=== PATIENT | female | born 1975 | race Caucasian/White ===

== ENCOUNTER 2016-11-05 05:05 | Inpatient (IN) | payer BC, OTHER ==
[2016-11-05 05:57] VITALS: BMI 33.6
[2016-11-05] MEDS ORDERED: TUBERCULIN PPD 5 TU/0.1ML SYRINGE (IN PATIENT USE ONLY) ID ONE (06:04)
[2016-11-05] MEDS ORDERED: AMPICILLIN - 2 GM in SODIUM CHLORIDE 100 ML IVPB ONE (06:04)
[2016-11-05] MEDS ORDERED: AMPICILLIN - 100 ML IVPB ONE (06:32)
[2016-11-05 06:40] LABS: BASOPHIL 0.3 % (0-2.0); EOSINOPHIL 0.8 % (0-4.5); MCH 30.2 pg (25.7-33.7); MCHC 33.5 g/dl (32.0-36.0); MEAN CELL VOLUME 90.1 fl (80-96); MEAN PLT VOLUME 8.7 fl (7.5-11.1); NEUTROPHILS 57.9 % (42.8-82.8); PLATELET COUNT 212 K/MM3 (134-434); RDW 13.7 % (11.6-15.6); WHITE BLOOD COUNT 7.2 K/mm3 (4.0-10.0)
[2016-11-05 06:43] LABS: INR 0.95 (0.82-1.09); PROTHROMBIN TIME (PATIENT) 10.4 SEC (9.98-11.88)
[2016-11-05 06:45] LABS: ACTIVATED PTT 25.7 SECONDS (26.9-34.4)
[2016-11-05] MEDS ORDERED: PROMETHAZINE HCL 25 MG/1 ML VIAL IVPB ONE (06:45)
[2016-11-05] MEDS ORDERED: DEXTROSE 5%-LACTATED RINGERS 1,000 ML IV SCH (06:45)
[2016-11-05] MEDS ORDERED: BUTORPHANOL TARTRATE 1 MG/ML VIAL IVPB ONE (06:45)
[2016-11-05 07:01] LABS: CALCIUM 8.8 mg/dL (8.5-10.1); CREATININE 0.6 mg/dL (0.55-1.02)
[2016-11-05 07:32] LABS: HIV 1 & 2 AB NEGATIVE; HIV 1 AGp24 NEGATIVE
[2016-11-05] MEDS ORDERED: ELECTROLYTE-148 SOLN 1,000 ML IV SCH (08:30)
[2016-11-05] MEDS: OXYTOCIN 20 UNITS in 0.9% NS 1,000 ML IV SCH ×2 (12:27→18:01)
[2016-11-05] MEDS ORDERED: BENZOCAINE 20% 57 GM BOTTLE TP PRN (12:43)
[2016-11-05] MEDS ORDERED: BISACODYL 10 MG SUPP.RECT RC PRN (12:43)
[2016-11-05] MEDS ORDERED: WITCH HAZEL 50% (TUCKS) 40 PAD/JAR PAD TP PRN (12:43)
[2016-11-05] MEDS ORDERED: BENZOCAINE 28 GM HEMORRHOIDAL OINTMENT TP PRN (12:43)
[2016-11-05] MEDS ORDERED: METHYLERGONOVINE MALEATE 0.2 MG/1 ML AMP IM PRN (12:43)
[2016-11-05 13:19] LABS: ARTERIAL BLD GAS O2 SATURATION 28.8 % (90-98.9); ARTERIAL BLOOD GAS HCO3 26.1 meq/L (22-26); ARTERIAL BLOOD GAS PO2 20.2 mmHg (80-100); ARTERIAL BLOOD GAS pH 7.27 (7.35-7.45)
[2016-11-05 13:20] LABS: ART PUNCT SITE OTHER; LPM/O2% 21%; PT. ON O2? n; TYPE OF O2 R/A
[2016-11-05 13:23] LABS: ARTERIAL BLD GAS O2 SATURATION 54.7 % (90-98.9); ARTERIAL BLOOD GAS BASE EXCESS -2.2 meq/l (-2-2); ARTERIAL BLOOD GAS HCO3 23.9 meq/L (22-26); ARTERIAL BLOOD GAS PO2 28.2 mmHg (80-100); ARTERIAL BLOOD GAS pH 7.33 (7.35-7.45)
[2016-11-05 13:24] LABS: ART PUNCT SITE OTHER; LPM/O2% 21%; PT. ON O2? NO; TYPE OF O2 R/A
[2016-11-05] MEDS: IBUPROFEN 600 MG TABLET (FP) PO PRN ×2 (14:59→19:52)
[2016-11-05] MEDS: ACETAMINOPHEN 325 MG TABLET (FP) PO PRN ×2 (15:00→19:49)
--- NOTE | 2016-11-05 17:21 | HP ---
Past Medical History - Primary Care Physician PCP:: Parker Wood - Admission Chief Complaint: 40.1 weeks, rom, labor History of Present Illness: 41 yo f c/o rom, with contraction, no fever, no bleeding. cv 2 cm, 80 vx -1 mr [facility] , [facility]hr cat 1 History Source: Patient Limitations to Obtaining History: No Limitations - Past Medical History ...: 4 ...Para: 1 ...Term: 1 ...: 0 ...Spon : 2 ...Induced : 0 ...Multiple Gestation: 0 ...LMP: 01/29/16 ... Weeks Gestation by Dates: 40.1 ...EDC by Dates: 11/04/16 ...EDC by Sono: 11/07/16 Endocrine: Yes: Hypothyroidism - Past Surgical History Past Surgical History: Yes: None Hx Myomectomy: No Hx Transabdominal Cerclage: No - Smoking History Smoking history: Never smoked Have you smoked in the past 12 months: No - Alcohol/Substance Use Hx Alcohol Use: No - Social History History of Recent Travel: No Home Medications - Allergies Allergies/Adverse Reactions: Allergies Allergy/AdvReac Type Severity Reaction Status Date / Time No Known Allergies Allergy Verified 11/05/16 11:46 - Home Medications Home Medications: Ambulatory Orders Levothyroxine [Synthroid -] 50 mcg PO DAILY 02/24/15 Vitamins (Sjr) - 1 tab PO DAILY 02/24/15 Review of Systems - Review of Systems Constitutional: reports: No Symptoms Eyes: reports: No Symptoms HENT: reports: No Symptoms Neck: reports: No Symptoms Cardiovascular: reports: No Symptoms Respiratory: reports: No Symptoms Gastrointestinal: reports: No Symptoms Genitourinary: reports: No Symptoms Breasts: reports: No Symptoms Reported, Lumps Musculoskeletal: reports: No Symptoms Integumentary: reports: No Symptoms Neurological: reports: No Symptoms Endocrine: reports: No Symptoms Psychiatric: reports: No Symptoms Physical Exam - Maternity Vital Signs: Vital Signs Temperature 98.4 F 11/05/16 17:08 Pulse Rate 73 11/05/16 17:08 Respiratory Rate 20 11/05/16 17:08 Blood Pressure 98/61 11/05/16 17:08 O2 Sat by Pulse Oximetry (%) Constitutional: Yes: Well Nourished, No Distress, Calm Eyes: Yes: WNL, Conjunctiva Clear, EOM Intact HENT: Yes: WNL, Atraumatic, Normocephalic Neck: Yes: WNL, Supple, Trachea Midline Cardiovascular: Yes: WNL, Regular Rate and Rhythm Breast(s): Yes: WNL - Abdominal Exam/OB Fundal Height: 40 Number of Fetuses: Single Presentation: Vertex Regularity: Irregular Intensity: Mod/Strong Monitor Mode: External Heart Rate Location: [facility] Category: I Accelerations: Uniform Decelerations: None - Vaginal Exam/OB Vaginal Bleediing: No Amniotic Membrane Status: Ruptured Nitrazine Test: Positive Amniotic Fluid: Yes: Meconium Stained Presentation: Vertex/Position Station: -2 - Physical Exam Musculoskeletal: Yes: WNL Edema: LLE: Trace, RLE: Trace Deep Tendon Reflex Grade: Normal +2 Psychiatric: Yes: WNL - Labs Lab Results: CBC, BMP 11/05/16 06:25 11/05/16 06:25 Hemorrhage Risk Assessment - Risk Factors Medium Risk Factors: Yes: None High Risk Factors: Yes: None Risk Score: 1 Risk Level: Medium Risk Problem List - Problems (1) 40 weeks gestation of Code(s): Z3A.40 - 40 WEEKS GESTATION OF (2) Rupture of membranes Code(s): AXU0242 - (3) First stage of labor established Code(s): ZWE0145 - (4) Advanced maternal age (AMA) in Code(s): UTZ2304 - (5) Adult hypothyroidism Code(s): E03.9 - HYPOTHYROIDISM, UNSPECIFIED Assessment/Plan plan admit, heart monitoring, pain management
[2016-11-06] MEDS: LEVOTHYROXINE NA 50 MCG TABLET (FP) PO SCH (06:19)
--- NOTE | 2016-11-06 07:08 | PN ---
Progress Note (short form) - Note Progress Note: ppd 1 doing well, no excess vaginal bleeding CBC, BMP 11/05/16 06:25 11/05/16 06:25 Last Vital Signs Temp Pulse Resp BP Pulse Ox 97.8 F 81 18 106/72 11/06/16 05:33 11/06/16 05:33 11/06/16 05:33 11/06/16 05:33 abdomen soft, uterus firm, non tender, , lochia mild ,, no odor ext .no calf tenderness plan ambulate, cbc Problem List - Problems (1) 40 weeks gestation of Code(s): Z3A.40 - 40 WEEKS GESTATION OF (2) Rupture of membranes Code(s): NER5135 - (3) First stage of labor established Code(s): MMY2781 - (4) Advanced maternal age (AMA) in Code(s): WGM2209 - (5) Adult hypothyroidism Code(s): E03.9 - HYPOTHYROIDISM, UNSPECIFIED
[2016-11-06 08:18] LABS: BASOPHIL 0.4 % (0-2.0); EOSINOPHIL 0.9 % (0-4.5); MCH 30.9 pg (25.7-33.7); MCHC 34.1 g/dl (32.0-36.0); MEAN CELL VOLUME 90.6 fl (80-96); MEAN PLT VOLUME 8.8 fl (7.5-11.1); NEUTROPHILS 64.5 % (42.8-82.8); PLATELET COUNT 184 K/MM3 (134-434); RDW 13.9 % (11.6-15.6); WHITE BLOOD COUNT 9.1 K/mm3 (4.0-10.0)
[2016-11-06] MEDS: PRENATAL VITAMINS W/ FOLIC ACID TABLET (FP) PO SCH (09:48)
[2016-11-06] MEDS: ACETAMINOPHEN 325 MG TABLET (FP) PO PRN ×3 (09:48→22:01)
[2016-11-06] MEDS: IBUPROFEN 600 MG TABLET (FP) PO PRN ×3 (09:50→22:00)
--- NOTE | 2016-11-06 17:44 | PN ---
Delivery - Delivery Vaginal Delivery: No Problems, Spontaneous Type of Anesthesia: None Episiotomy/Laceration: None EBL (cc): 300 Delivery, Single - Stages of Labor Date 1st Stage Initiatied: 11/05/16 Time 1st Stage Initiated: 05:00 Date 2nd Stage Initiated: 11/05/16 Time 2nd Stage Initiated: 12:20 Date of Delivery: 11/05/16 Time of Delivery: 12:32 Time Placenta Delivered: 12:37 Placenta: Yes: Spontaneous, Normal Configuration - Condition of Apparel Pattern Maker/Research Scholar Present: Yes Name: Groening,Natalia Infant Gender: Male Position: OA Total Hours ROM (Hrs/Mins): 8/37 - 1 Minute Total Score: 9 5 Minutes Total Score: 9 - [place] Feeding Plan Initial Plan: Elected not to breastfeed exclusively throughout hospitalization Benefits of Exclusively reinforced: Yes - Additional Information: Light meconium. Neonatology at delivery. Uncomplicated , mother and baby well
[2016-11-06] MEDS ORDERED: SENNOSIDES/DOCUSATE COMBO (SENNA PLUS) TABLET (UD) PO PRN (22:00)
[2016-11-07] MEDS: LEVOTHYROXINE NA 50 MCG TABLET (FP) PO SCH (06:30)
[2016-11-07] MEDS: ACETAMINOPHEN 325 MG TABLET (FP) PO PRN (09:28)
[2016-11-07] MEDS: PRENATAL VITAMINS W/ FOLIC ACID TABLET (FP) PO SCH (09:28)
[2016-11-07 12:02] VITALS: BP 107/68; PULSE 88; TEMP 98
--- NOTE | 2016-11-12 20:30 | DS ---
Physical Exam-SALON COORDINATOR Vital Signs: Vital Signs Temperature 98.0 F 11/07/16 09:00 Pulse Rate 88 11/07/16 09:00 Respiratory Rate 20 11/07/16 09:00 Blood Pressure 107/68 11/07/16 09:00 O2 Sat by Pulse Oximetry (%) Constitutional: Yes: Well Nourished, No Distress, Calm Eyes: Yes: WNL, Conjunctiva Clear, EOM Intact HENT: Yes: WNL, Atraumatic, Normocephalic Neck: Yes: WNL, Supple, Trachea Midline Cardiovascular: Yes: WNL, Regular Rate and Rhythm Respiratory: Yes: WNL, Regular, CTA Bilaterally Gastrointestinal: Yes: WNL ...Rectal Exam: Yes: WNL Renal/: Yes: WNL ....Post : Yes: Uterus firm, Uterus non-tender, Slight lochia rubra Breast(s): Yes: WNL Musculoskeletal: Yes: WNL Extremities: Yes: WNL Integumentary: Yes: WNL Neurological: Yes: WNL, Alert, Oriented ...Motor Strength: WNL Psychiatric: Yes: WNL, Alert, Oriented Labs: CBC, BMP 11/06/16 06:25 11/05/16 06:25 Delivery - Delivery Vaginal Delivery: No Problems, Spontaneous Type of Anesthesia: None Episiotomy/Laceration: None EBL (cc): 300 Delivery, Single - Stages of Labor Date 1st Stage Initiatied: 11/05/16 Time 1st Stage Initiated: 05:00 Date 2nd Stage Initiated: 11/05/16 Time 2nd Stage Initiated: 12:20 Date of Delivery: 11/05/16 Time of Delivery: 12:32 Time Placenta Delivered: 12:37 Placenta: Yes: Spontaneous, Normal Configuration - Condition of Priest/Roller Inspector Present: Yes Name: Natalia Vidal Gender: Male Position: OA Total Hours ROM (Hrs/Mins): 8/37 - 1 Minute Total Score: 9 5 Minutes Total Score: 9 - Feeding Plan Initial Plan: Elected not to breastfeed exclusively throughout hospitalization Benefits of Exclusively reinforced: Yes Discharge Summary Reason For Visit: LABOR Procedures: Principal: - Instructions Diet, Activity, Other Instructions: PT INSTRUCTED TO CALL FOR 4-6 WEEK FOLLOW UP APPOINTMENT. Disposition: HOME - Home Medications Comprehensive Discharge Medication List: Ambulatory Orders Levothyroxine [Synthroid -] 50 mcg PO DAILY 02/24/15 Vitamins (Sjr) - 1 tab PO DAILY 02/24/15
== END 2016-11-07 11:30 | disposition home or self-care (01) | DRG 775 ==
LOC: JLDR 05:05 → J3W 14:47
PROVIDERS: ADMIT Obstetrics & Gynecology; ATTEND Obstetrics & Gynecology
PROC: 10E0XZZ Delivery of Products of Conception, External Approach (ICD-10-PCS; principal; 2016-11-05)
DX: O48.0 Post-term pregnancy (principal); O99.284 Endocrine, nutritional and metabolic diseases complicating childbirth; O09.523 Supervision of elderly multigravida, third trimester; E03.8 Other specified hypothyroidism; Z3A.40 40 weeks gestation of pregnancy; Z37.0 Single live birth
CPT/HCPCS: 36415; 36600; 59409; 80048; 82803; 85025; 85610; 85730; 86593; 86850; 86900; 86901; 87389

== ENCOUNTER 2017-06-02 13:40 | Day surgery (SDC) | payer BC, OTHER ==
[2017-05-27 13:44] VITALS: BMI 28.8
--- NOTE | 2017-06-02 14:43 | HP ---
Admitting History and Physical - Admission History of Present Illness: 41 yo P2 desiring permanent sterilization, rejects all forms of non-permanent birthcontrol - Past Medical History Cardiovascular: No: HTN Pulmonary: No: Asthma ...LMP: 05/10/17 ...: No ...: 3 ...Para: 2 Infectious Disease: No: HIV Endocrine: Yes: Hypothyroidism - Past Surgical History Past Surgical History: Yes: None Additional Past Surgical History: D&C - Smoking History Smoking history: Never smoked Have you smoked in the past 12 months: No - Alcohol/Substance Use Hx Alcohol Use: Yes (RARE) - Social History History of Recent Travel: No Home Medications - Allergies Allergies/Adverse Reactions: Allergies Allergy/AdvReac Type Severity Reaction Status Date / Time No Known Allergies Allergy Verified 06/02/17 14:10 - Home Medications Home Medications: Ambulatory Orders Levothyroxine [Synthroid -] 50 mcg PO DAILY 02/24/15 Family Disease History - Family Disease History Family Disease History: CA: Brother (breast ca age 36, recent diagnosis) Review of Systems - Review of Systems Constitutional: reports: No Symptoms Cardiovascular: reports: No Symptoms Respiratory: reports: No Symptoms Musculoskeletal: reports: No Symptoms Integumentary: reports: No Symptoms Psychiatric: reports: No Symptoms Physical Examination Vital Signs: Vital Signs Temperature 98.1 F 06/02/17 14:11 Pulse Rate 67 06/02/17 14:11 Respiratory Rate 18 06/02/17 14:11 Blood Pressure 111/68 06/02/17 14:11 O2 Sat by Pulse Oximetry (%) 97 06/02/17 14:13 Constitutional: Yes: Well Nourished, No Distress, Calm Cardiovascular: Yes: Regular Rate and Rhythm Respiratory: Yes: Regular, CTA Bilaterally Gastrointestinal: Yes: Normal Bowel Sounds, Soft Extremities: Yes: WNL Neurological: Yes: Alert, Oriented ...Motor Strength: WNL Psychiatric: Yes: Alert, Oriented Assessment/Plan 41 yo P2 desiring permanent sterilization 1. Reviewed consent forms. Discussed risks including infection, bleeding, damage to surrounding organs such as bowel and bladder. Reviewed risk of laparotomy. Reviewed risk of tubal ligation failure. Reviewed tubal ligation vs salpingectomy to reduce possible risk of malignancy, declines salpingectomy. 2. Ancef midwife practitioner 3. SCDs for DVT prophylaxis 4. Will proceed to OR
[2017-06-02] MEDS ORDERED: SUCCINYLCHOLINE CHLORIDE 200 MG/10 ML VIAL ONE (16:04)
[2017-06-02] MEDS ORDERED: PROPOFOL 20 ML ONE (16:04)
[2017-06-02] MEDS ORDERED: DEXAMETHASONE SOD PHOSPHATE 4 MG/1 ML VIAL ONE (16:04)
[2017-06-02] MEDS ORDERED: MIDAZOLAM HCL 2 MG/2 ML SINGLE DOSE VIAL ONE (16:05)
[2017-06-02] MEDS ORDERED: ceFAZolin SODIUM 1 GM VIAL ONE (16:32)
--- NOTE | 2017-06-02 17:10 | OP ---
Operative Note - Note: Operative Date: 06/02/17 Pre-Operative Diagnosis: multiparous desiring permanent sterilization Operation: laparoscopic bilateral tubal ligation, IUD removal Findings: normal appearing uterus, normal fallopian tubes and ovaries bilaterally; Paragard IUD insitu Surgeon: Simona Madera Exceptional Needs Teacher: Marin Perez Anesthesiologist/SENIOR MILITARY ANALYST: Abbey Gallardo (MD [place]) Anesthesia: General Specimens Removed: IUD Estimated Blood Loss (mls): 5 Drains, Volume Out (mls): 300 (UOP) Fluid Volume Replaced (mls): 800 Operative Report Dictated: Yes
[2017-06-02] MEDS ORDERED: ONDANSETRON 4 MG/2 ML VIAL IVPUSH PRN (17:17)
[2017-06-02] MEDS ORDERED: oxyCODONE HCL 5 MG TABLET PO PRN ×2 (17:17)
[2017-06-02] MEDS ORDERED: LACTATED RINGERS SOLUTION 1,000 ML IV SCH (17:30)
[2017-06-02 18:14] VITALS: TEMP 97.8
[2017-06-02 20:32] VITALS: BP 132/67; PULSE 57
--- NOTE | 2017-06-03 11:00 | OP ---
DATE OF OPERATION: 06/02/2017 ATTENDING PHYSICIAN RESPONSIBLE FOR SIGNING REPORT: Jacqui Gonzalez MD PREOPERATIVE DIAGNOSIS: Multiparous, desiring permanent sterilization. POSTOPERATIVE DIAGNOSIS: Multiparous, desiring permanent sterilization. SURGEON: Jacqui Gonzalez MD FRUIT I FARMWORKER: Marin Perez MD; Was needed due to the complexity of surgery and involved in all aspects of surgery ANESTHESIOLOGISTS: Abbey Gallardo MD and Velvet Cabral MD ANESTHESIA: General. ESTIMATED BLOOD LOSS: 5 mL FLUIDS GIVEN: 800 mL URINE OUTPUT: 300 mL INDICATION: Patient is a 41-year-old, 3, para 2 desiring permanent sterilization and IUD removal. She was counseling regarding risks, benefits, alternatives, and complications of the procedure including infection; bleeding; damage to surrounding organs such as bowel, bladder, and ureters; tubal ligation failure. She was counseled regarding tubal ligation versus laparoscopic salpingectomy for risk reduction of malignancy. She expressed that she wanted a laparoscopic tubal ligation. She expressed understanding of the risks and was brought to the operating room. DESCRIPTION OF PROCEDURE: When anesthesia was found to be adequate, patient was prepped and draped in normal sterile fashion, placed in dorsal lithotomy position using Jimmy stirrups. A weighted speculum was placed in the patient's vagina. Anterior lip of the cervix was grasped using a single-tooth tenaculum, and the Paragard IUD was removed and found to be intact. A HUMI uterine manipulator was placed. Attention was brought to the patient's abdomen. A 5-mm port site incision was made, and a 5-mm optical trocar was placed under direct visualization. The abdomen was insufflated to operating pressure of 15 mmHg of carbon dioxide gas. Attention was brought to the suprapubic region. A 5-mm trocar was placed under direct visualization. Attention was brought to the right fallopian tube which was followed to the fimbriated end, and then, a 3-cm portion of the fallopian tube was cauterized using the Kleppinger bipolar electrocautery. Attention was brought to the left fallopian tube where it was followed to its fimbriated end. A 3-cm portion was cauterized using the Kleppinger bipolar electrocautery. Good hemostasis was noted. All instruments were removed from the patient's abdomen. The pneumoperitoneum was removed, and the patient was awoken from anesthesia. The incision was closed using 4-0 Biosyn in interrupted fashion. The patient tolerated the procedure well. Estimated blood loss was less than 5 mL. Patient was brought to recovery room in stable condition. JACQUI GONZALEZ M.D. [id number] MTDD
--- NOTE | 2017-06-04 12:55 | PATH ---
Surgical Pathology Report Patient Name: ELINA GARCIA Med. Rec. #: [id number] /Age/Gender: 1975 (Age: 41) / F Account: [id number] Location: [facility] SURGICAL Taken: 06/02/2017 Received: 06/03/2017 Reported: 06/04/2017 Physicians: Simona Madera Specimen(s) Received OLD IUD Clinical History Voluntary sterilization Final Diagnosis OLD IUD, REMOVAL: IUD (GROSS EXAM). Electronically Signed Gadiel Marks M.D. Gross Description Received fresh labeled "old IUD" is a 3.5 cm in length T-shaped device, consistent with an IUD. No soft tissue is present. No sections are submitted, gross only. 06/03/201706/03/2017
== END 2017-06-02 19:15 | disposition home or self-care (01) ==
LOC: JASU-SURG 13:40
PROVIDERS: ATTEND Obstetrics & Gynecology
PROC: 0UPD7HZ Removal of Contraceptive Device from Uterus and Cervix, Via Natural or Artificial Opening (ICD-10-PCS; 2017-06-02)
PROC: 0UB74ZZ Excision of Bilateral Fallopian Tubes, Percutaneous Endoscopic Approach (ICD-10-PCS; principal; 2017-06-02 15:30)
DX: Z30.2 Encounter for sterilization (principal); Z30.432 Encounter for removal of intrauterine contraceptive device
CPT/HCPCS: 84703; 88300-TC; 94760

== ENCOUNTER 2019-07-22 18:56 | Emergency (ER) | payer BC, OTHER ==
[2019-07-22 19:30] VITALS: BP 120/74; PULSE 99; TEMP 99; BMI 28.1
--- NOTE | 2019-07-22 20:14 | PDOC ---
History of Present Illness - General Chief Complaint: Cold Symptoms Stated Complaint: FEVER Time Seen by Provider: 07/22/19 19:35 History Source: Patient Exam Limitations: No Limitations Past History - Travel Traveled outside of the country in the last 30 days: No Close contact w/someone who was outside of country & ill: No - Past Medical History Allergies/Adverse Reactions: Allergies Allergy/AdvReac Type Severity Reaction Status Date / Time No Known Allergies Allergy Verified 06/02/17 14:10 Home Medications: Ambulatory Orders Levothyroxine [Synthroid -] 50 mcg PO DAILY 02/24/15 Oxycodone HCl/Acetaminophen [Percocet 5-325 mg Tablet -] 1 - 2 tab PO Q6H #5 tab MDD 4 06/02/17 Asthma: No Cancer: No Cardiac Disorders: No COPD: No Diabetes: Yes (GDM - diet controlled) HTN: No Seizures: No Thyroid Disease: Yes (hypothyroidism) - Surgical History Abdominal Surgery: Yes (abdominalplasty) - Reproductive History (#): 0 Para: 0 Cervical CA: No Dysfunctional Uterine Bleeding: No Ectopic : No Endometrial CA: No Polycystic Ovaries: No Therapeutic (s) & number: No Tubal Ligation: No Spontaneous : 0 - Psycho Social/Smoking Cessation Hx Smoking History: Never smoked Have you smoked in the past 12 months: No Hx Alcohol Use: No Drug/Substance Use Hx: No Substance Use Type: None Hx Substance Use Treatment: No Review of Systems - Review of Systems Able to Perform ROS?: Yes Is the patient limited Yoruba proficient: No *Physical Exam - Vital Signs Last Vital Signs Temp Pulse Resp BP Pulse Ox 99 F 99 H 20 120/74 98 07/22/19 19:20 07/22/19 19:20 07/22/19 19:20 07/22/19 19:20 07/22/19 19:20 Discharge - Discharge Information Problems reviewed: Yes Clinical Impression/Diagnosis: URI (upper respiratory infection) Qualifiers: URI type: unspecified viral URI Qualified Code(s): J06.9 - Acute upper respiratory infection, unspecified Condition: Stable Disposition: HOME - Admission No - Follow up/Referral Referrals: Everett Estrada MD [Primary Care Provider] - - Patient Discharge Instructions Patient Printed Discharge Instructions: DI for Viral Upper Respiratory Infection -- Adult Additional Instructions: You have an upper respiratory infection, or the common cold. Please take Motrin 800 mg every 8 hours as needed for pain and fever not to exceed 3000 mg a day. Your wound does not appear infected today Drink plenty of fluids. Cough drops and warm tea may help your symptoms as well. Please follow up with her primary care doctor this week. Return to the emergency department if you have difficulty breathing, shortness of breath, worsening pain, nausea, vomiting or if you have any changes in your symptoms. - Post Discharge Activity Work/Back to School Note: Back to Work
== END 2019-07-22 20:18 | disposition home or self-care (01) ==
LOC: JERFT 18:56
DX: J06.9 Acute upper respiratory infection, unspecified (principal); B97.89 Other viral agents as the cause of diseases classified elsewhere; E03.9 Hypothyroidism, unspecified; Z86.32 Personal history of gestational diabetes; Z98.890 Other specified postprocedural states
CPT/HCPCS: 99281-25

== ENCOUNTER 2020-08-01 11:08 | Emergency (ER) | payer BC, OTHER ==
[2020-08-01 11:18] VITALS: BMI 28.8
--- NOTE | 2020-08-01 12:18 | PDOC ---
History of Present Illness - General Chief Complaint: Lightheaded Stated Complaint: PANIC ATTACK Time Seen by Provider: 08/01/20 11:55 History Source: Patient - History of Present Illness Initial Comments: 08/01/20 12:13 44y F with PMH of hypothyroidism presenting to the ER for sudden onset chest pressure, sob and lightheadedness that began around 3-4h ago. 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 She went out and sat down. She was given water by the paralegal legal secretary and the principal called EMS. Per pt, vitals were normal by EMS. She is currently asymptomatic. She had similar symptoms but not as intense a few years ago when she was . Denies recent surgery, leg swelling, use of OCPs, headache, fever, chills, sick contacts, n/v/d, abdominal pain. Denies smoking, history of DE in the family, clotting disorders. PMD: PMH: see hpi PSH: none Meds: none Allergies: nkda Social: denies Is this a multiple visit Asthma Patient?: No Past History - Medical History Allergies/Adverse Reactions: Allergies Allergy/AdvReac Type Severity Reaction Status Date / Time No Known Allergies Allergy Verified 08/01/20 11:13 Home Medications: Ambulatory Orders Levothyroxine [Synthroid -] 50 mcg PO DAILY 02/24/15 Asthma: No Cancer: No Cardiac Disorders: No COPD: No Diabetes: Yes (GDM - diet controlled) HTN: No Seizures: No Thyroid Disease: Yes (hypothyroidism) - Surgical History Abdominal Surgery: Yes (abdominalplasty) - Reproductive History Is Patient Now?: No (#): 0 Para: 0 Cervical CA: No Dysfunctional Uterine Bleeding: No Ectopic : No Endometrial CA: No Polycystic Ovaries: No Therapeutic (s) & number: No Tubal Ligation: No Spontaneous : 0 - Psycho-Social/Smoking History Smoking History: Never smoked Have you smoked in the past 12 months: No Review of Systems - Review of Systems Constitutional: No: Symptoms Reported HEENTM: No: Symptoms Reported Respiratory: Yes: See HPI Cardiac (ROS): Yes: See HPI ABD/GI: No: Symptoms Reported : No: Symptoms Reported Musculoskeletal: No: Symptoms Reported Integumentary: No: Symptoms Reported Neurological: Yes: See HPI *Physical Exam - Vital Signs Last Vital Signs Temp Pulse Resp BP Pulse Ox 98.3 F 63 18 126/90 100 08/01/20 11:15 08/01/20 11:15 08/01/20 11:15 08/01/20 11:15 08/01/20 11:15 - Physical Exam General Appearance: Yes: Nourished, Appropriately Dressed. No: Apparent Distress HEENT: positive: EOMI, LILY, Normal ENT Inspection. negative: Scleral Icterus (R), Scleral Icterus (L) Neck: positive: Trachea midline, Supple. negative: Lymphadenopathy (R), Lymphadenopathy (L) Respiratory/Chest: positive: Lungs Clear, Normal Breath Sounds. negative: Crackles, Rales, Rhonchi, Stridor, Wheezing Cardiovascular: positive: Regular Rhythm, Regular Rate, S1, S2. negative: Edema, JVD, Murmur Gastrointestinal/Abdominal: positive: Normal Bowel Sounds, Soft. negative: Tender Musculoskeletal: negative: CVA Tenderness Extremity: positive: Normal Capillary Refill. negative: Pedal Edema, Swelling, Calf Tenderness Integumentary: positive: Normal Color, Dry, Warm Neurologic: positive: lime mixer II-XII NML intact, Fully Oriented, Alert, Normal Mood/Affect, Normal Response, Motor Strength 02/19 ED Treatment Course - LABORATORY CBC & Chemistry Diagram: 08/01/20 13:00 08/01/20 13:00 - RADIOLOGY Radiology Studies Ordered: Category Date Time Status CHEST PA & LAT [RAD] Stat Radiology 08/01/20 12:10 Ordered Medical Decision Making - Medical Decision Making 08/01/20 19:24 44y f with pmh of hypothyroidism presenting to the ER for chest pressure, sob, palpitations vitals here wnl. normal physical exam. ddx includes panic attack, lower suspicion for pna, acs, pe, dissection, ptx. -labs; cbc, cmp, trop, tsh -cxr ekg ekg: sinus bradycardia no [place] or depressions. no signs of acute ischemia cxr: no acute findings. mildly elevated tsh but otherwise wnl, negative trop. given history of hypothyroidism and pt on meds. pt feeling better. suspect anxiety. discussed findings and diagnosis with pt. advised to f/u with pmd and cardiology. pt understands and agrees with plan. dc home. Discharge - Discharge Information Problems reviewed: Yes Clinical Impression/Diagnosis: Atypical chest pain Condition: Good Disposition: HOME - Admission No - Follow up/Referral Referrals: Everett Estrada MD [Primary Care Provider] - Diogo Pires MD [Staff Physician] - - Patient Discharge Instructions Patient Printed Discharge Instructions: DI for Atypical Chest Pain, DI for Palpitations Additional Instructions: You were seen in the ER today for palpitations and chest pressure. The blood tests, xray and ECG are normal. The symptoms you experienced are likely due to s tress. I recommend that you follow up with your doctor. You can also follow up with cardiology. Referral has been provided. Stay well hydrated. Come back to the ER if you have worsening pain, have difficulty breathing, have fever or if any new or concerning symptom develops. Thank you. - Post Discharge Activity Work/Back to School Note: Back to Work
[2020-08-01 13:06] LABS: BASO % 0.5 % (0-2.0); EOS % 1.3 % (0-4.5); HEMATOCRIT 42.7 % (32.4-45.2); HEMOGLOBIN 14.1 GM/dL (10.7-15.3); LYMPH % 38.9 % (8-40); MCH 29.3 pg (25.7-33.7); MCHC 32.9 g/dl (32.0-36.0); MEAN PLT VOLUME 8.5 fl (7.5-11.1); MONO % 9.7 % (3.8-10.2); NEUT % 49.6 % (42.8-82.8); PLATELET COUNT 250 K/MM3 (134-434); RDW 13.6 % (11.6-15.6); WHITE BLOOD COUNT 4.7 K/mm3 (4.0-10.0)
[2020-08-01 13:48] LABS: ALK PHOS 83 U/L (45-117); ANION GAP 6 MMOL/L (8-16); BILIRUBIN,TOTAL 0.4 mg/dL (0.2-1); BLOOD UREA NITROGEN 11.2 mg/dL (7-18); CALCIUM 9.4 mg/dL (8.5-10.1); CHLORIDE 106 mmol/L (98-107); CO2 29 mmol/L (21-32); CREATININE 0.7 mg/dL (0.55-1.3); GLUCOSE,RANDOM 85 mg/dL (74-106); POTASSIUM 4.6 mmol/L (3.5-5.1); SGOT/AST 18 U/L (15-37); SGPT/ALT 27 U/L (13-61); SODIUM 141 mmol/L (136-145); TOT PROT 8.3 g/dl (6.4-8.2)
--- NOTE | 2020-08-01 13:50 | PDOC ---
Documentation entered by Chris Danielson SCRIBE, acting as scribe for Colt Sheikh MD. Colt Sheikh MD: This documentation has been prepared by the sandraibeErum Angel, SCRIBE, under my direction and personally reviewed by me in its entirety. I confirm that the documentation accurately reflects all work, treatment, procedures, and medical decision making performed by me. Attending Attestation - Resident Resident Name: Sa Maggiira - ED Attending Attestation I have performed the following: I have examined & evaluated the patient, The case was reviewed & discussed with the resident, I agree w/resident's findings & plan, Exceptions are as noted - HPI HPI: 08/01/20 13:19 The patient is a 44 year old female with a significant past medical history of hypothyroidism who presents to the ED with chest pressure, SOB and lightheadedness that started 3-4 hours prior to arrival. 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 Episode lsated ~1- min and pt states she is currently asytmpmtatic. EMS was called by the principal and water was given to the patient. The patient states when EMS checked her vitals they were normal. The patient notes having similar symptoms a few years back when she was but not this severe. The patient here in the ED is feeling much better. The patient denies fever/chills, headache, sick contacts, abdominal pain or N/V/D. 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 - Physicial Exam PE: 08/01/20 13:49 GENERAL: The patient is awake, alert, and fully oriented, Nontoxic - in no acute distress. HEAD: Normocephalic, atraumatic. EYES: extraocular movements intact, sclera anicteric, conjunctiva clear. ENT: Normal voice, Moist mucous membranes. NECK: Normal range of motion, supple LUNGS: Breath sounds equal, clear to auscultation bilaterally. No wheezes, no rhonchi, no rales. HEART: Regular rate and rhythm, normal S1 and S2 without murmur, rub or gallop. ABDOMEN: Soft, nontender, No guarding, no rebound. No CVA tenderness EXTREMITIES: Normal range of motion, no edema. NEUROLOGICAL: No facial assymetry, Normal speech, PSYCH: Normal mood, normal affect. SKIN: Warm, Dry, normal turgor, - Medical Decision Making 08/01/20 13:49 ddx includes but is not limited to possible palpitations/arrhythmia, anemia, metabolic derangements, anxiety/panic attack Patient's blood work was reviewed, no signs of anemia, awaiting EKG Discharge - Follow up/Referral Referrals: Everett Estrada MD [Primary Care Provider] - - Patient Discharge Instructions - Post Discharge Activity
[2020-08-01 14:20] VITALS: BP 126/78; PULSE 72; TEMP 97.9
--- NOTE | 2020-08-01 14:52 | EKG ---
Test Reason : Blood Pressure : / mmHG Vent. Rate : 056 BPM Atrial Rate : 056 BPM P-R Int : 152 ms QRS Dur : 084 ms QT Int : 430 ms P-R-T Axes : 066 042 030 degrees QTc Int : 414 ms SINUS BRADYCARDIA OTHERWISE NORMAL ECG NO PREVIOUS ECGS AVAILABLE Confirmed by SUMA WASHBURN MD ([id number]) on 08/01/2020 2:52:37 PM Referred By: Confirmed By:SUMA WASHBURN MD
== END 2020-08-01 14:20 | disposition home or self-care (01) ==
LOC: JER 11:08
DX: R07.9 Chest pain, unspecified (principal)
CPT/HCPCS: 36415; 71046-TC-FY; 80053; 84443; 84484; 84703; 85025; 93005; 93010; 99285-25